=== PATIENT | male | born 1960 | race Two or more races ===

== ENCOUNTER → 2024-11-16 | Outpatient (CLI) | payer MEDICAID, SELFPAY ==
--- NOTE | 2024-11-16 10:20 | XR_ITS ---
Examination: Bone densitometry Date and time of exam:November 16, 2024 1036 hours INDICATIONS: And tightness seizure medication years, vitamin D Technique: Lumbar spine and hip total bone mineralization values of an calculated. Peak reference and age match control results have been displayed. Findings: Lumbar spine total bone mineralization is0.659 gm/cm2. This is 3.9 standard deviations below peak reference. This is 3.2 standard deviations below age-matched controls. Hip total bone mineralization is 0.619 gm/cm2 This is 2.7 standard deviations below peak reference. This is 2.3 standard deviations below age-matched controls Impression: There is osteoporosis based on lumbar spine measurements. There is osteoporosis based on hip measurements
== END | disposition home or self-care (01) ==
PROVIDERS: Referring Provider Physician Assistant; Visit Provider Physician Assistant
DX: M81.0 Age-related osteoporosis without current pathological fracture (principal)
CPT/HCPCS: 77080